=== PATIENT | male | born 1980 | race Two or more races ===

== ENCOUNTER → 2016-12-16 | Outpatient (CLI) | payer BC, OTHER ==
--- NOTE | 2016-12-16 15:22 | REP ---
PA and lateral chest, stat request: There are no comparisons. The lung butler are clear. The cardiac size is normal The sarika, mediastinum, and bony thorax are unremarkable. Impression: Negative PA and lateral chest. Signed by Arron Thorne MD 12/16/2016 03:14 P
== END ==
LOC: M LRY 15:02
PROVIDERS: ATTEND Nurse Practitioner Family
DX: R07.81 Pleurodynia (principal)

== ENCOUNTER 2025-11-07 10:39 | Day surgery (SDC) | payer BC ==
[~2025-11-07] VITALS: Ht 180.3 cm; Wt 81.2 kg
[~2025-11-07 10:39] MED LIST: LABE100T91 PO; LISI20TA33 PO
[2025-11-07] MEDS ORDERED: LIDOCAINE 2% 100 MG/5 ML SDV (FOR ANES.) As Ordered ONE (12:11)
[2025-11-07] MEDS ORDERED: LABETALOL 100 MG/20 ML VIAL As Ordered ONE (12:46)
[2025-11-07] MEDS ORDERED: LABETALOL 100 MG/20 ML VIAL IV PRN (13:00)
[2025-11-07] MEDS ORDERED: hydrALAZINE 20 MG/ML 1 ML VIAL IV STA (13:07)
[2025-11-07 13:28] VITALS: BP 179/110; TEMP 98.4; O2SAT 98
== END 2025-11-07 13:40 | disposition home or self-care (01) ==
LOC: M OPP 10:39
PROVIDERS: ATTEND Surgery
DX: Z12.11 Encounter for screening for malignant neoplasm of colon (principal); D12.4 Benign neoplasm of descending colon; K64.1 Second degree hemorrhoids; K44.9 Diaphragmatic hernia without obstruction or gangrene; K29.70 Gastritis, unspecified, without bleeding; R10.13 Epigastric pain; F17.200 Nicotine dependence, unspecified, uncomplicated; Z79.899 Other long term (current) drug therapy
CPT/HCPCS: 43239; 45385; 88305; J3010